=== PATIENT | male | born 1965 | race Caucasian/White ===

== ENCOUNTER 2020-04-04 09:38 | Day surgery (SDC) | payer OTHER ==
--- NOTE | 2020-04-04 09:05 | HP ---
DATE OF SURGERY: 04/04/2020 HISTORY OF PRESENT ILLNESS: The patient is a 54 year old with no prior colonoscopy, no bloody stools, no change in bowel movements and no pain. Family history of mother with diverticular disease. No family history of colon cancer. He is in need of screening colonoscopy. PAST MEDICAL HISTORY: Hypertension. PAST SURGICAL HISTORY: Tonsillectomy. Umbilical hernia repair in the past. Left foot surgery. Metatarsal surgery in the past. MEDICATIONS: Losartan, amlodipine, hydrochlorothiazide, Zyrtec, vitamin D. ALLERGIES: PENICILLIN. FAMILY HISTORY: As mentioned above also includes liver disease, diabetes, hypertension, Alzheimer's. SOCIAL HISTORY: Social alcohol use denies abuse, denies smoking. REVIEW OF SYSTEMS: Fourteen systems reviewed. No chest pain or palpitations. Other systems negative or noncontributory as above and per preadmission questionnaire. PHYSICAL EXAMINATION: GENERAL: No acute distress. HEENT: Sclerae nonicteric. NECK: No JVD. CHEST: Equal excursion, nonlabored breathing. CVS: Regular rate and rhythm. ABDOMEN: Soft. No peritoneal signs. EXTREMITIES: No significant edema. NEURO: Alert, oriented, moving extremities symmetrically. No gross motor deficits noted. RECTAL: Deferred timed to endoscopy exam. PSYCH: Appropriate mood and affect. SKIN: Dry and intact. IMPRESSION: A 54 year old in need of screening colonoscopy. I feel the patient is a candidate. Shown the risk sheet and explained the procedure in detail but not limited to bleeding or infection, risk of bowel injury or perforation possibly requiring open procedure, risk of missed or nondiagnosis or incomplete exam possibly requiring barium enema, other studies or procedures, general risk of anesthesia or sedation, risk of bowel prep but not limited to, consent was obtained, will proceed with outpatient colonoscopy under MAC anesthesia.
[2020-04-04] MEDS ORDERED: Lactated Ringers 1,000 ML IV ONE (09:46)
[2020-04-04] MEDS ORDERED: Lactated Ringers 1,000 ML IV SCH (10:00)
[2020-04-04] MEDS ORDERED: DIPRIVAN 200 MG/20 ML IV ONE ×2 (11:17→11:33)
[2020-04-04 12:21] VITALS: BP 156/79; PULSE 57; O2SAT 97
--- NOTE | 2020-04-05 10:47 | OP ---
SURGERY DATE/TIME: 04/04/2020 1120 PREOPERATIVE DIAGNOSIS: Need for screening colonoscopy. POSTOPERATIVE DIAGNOSES: 1) Fair to somewhat limited bowel prep, large amount of liquidy semisolid stool just slightly limiting the exam for small lesions. 2) Mild diverticulosis. 3) Small early polyp versus hyperplastic lesion distal rectum. 4) Withdrawal time eight minutes. 5) ASA Class II. PROCEDURES: 1) Colonoscopy to cecum. 2) Cold biopsy small early polyp versus hyperplastic lesion distal rectum. SURGEON: Dr. Janusz Singh. SISAL PICKER: Sha Zacarias, Medical Student III. ANESTHESIA: MAC. ESTIMATED BLOOD LOSS: Minimal. INDICATIONS: As noted above. Risks and benefits explained in detail but not limited to and consent obtained. DESCRIPTION OF PROCEDURE AND FINDINGS: The patient is taken to the operating room. MAC anesthesia introduced. After official time out and no disagreement with planned procedure, digital rectal exam did not reveal any rectal masses. Video colonoscope inserted and passed up the tortuous sigmoid, descending, transverse and ascending colon. With external pressure the scope was able to be passed over to the cecum. Appendiceal orifice and valve well visualized. Prep overall was fair to limited just slightly better than poor requiring copious amounts of suction irrigating as clear as possible given the large amount of liquidy, semisolid stool just slightly limiting the exam for very small lesions. On slow careful withdrawal of the scope over the next eight minutes, no signs of any large polyps, masses or obstructing lesions. Again, it required extra time with suction and irrigation. He did have some small diverticula in the left colon. Otherwise no signs of any large polyps, masses or obstructing lesions. He did have just a little bit of prep irritation in the distal rectum. Otherwise, he just had small, 2 mm early polyp versus hyperplastic lesion removed with cold biopsy forceps. Good hemostasis noted. The scope is withdrawn. There were no immediate complications. Findings discussed with the family out in the waiting area. He was transferred to recovery room in stable condition.
== END 2020-04-04 12:30 | disposition home or self-care (01) ==
LOC: SDC 09:38
PROVIDERS: ATTEND Surgery
DX: Z12.11 Encounter for screening for malignant neoplasm of colon (principal); K57.30 Diverticulosis of large intestine without perforation or abscess without bleeding; D12.8 Benign neoplasm of rectum
CPT/HCPCS: 88305; J2704